=== PATIENT | female | born 1965 | race Caucasian/White ===

== ENCOUNTER 2023-06-29 05:25 | Day surgery (SDC) | payer OTHER | END 2023-06-29 10:15 | disposition home or self-care (01) | LOC: AMB-ENDOS 05:25 | PROVIDERS: ATTEND Surgery | DX: K29.00 Acute gastritis without bleeding (principal); K44.9 Diaphragmatic hernia without obstruction or gangrene; E66.09 Other obesity due to excess calories; R10.13 Epigastric pain; Z20.822 Contact with and (suspected) exposure to COVID-19 ==